=== PATIENT | male | born 2000 | race Caucasian/White ===

== ENCOUNTER 2020-09-21 13:20 | Outpatient (CLI) | payer SELFPAY ==
--- NOTE | ~2020-09-21 | XR_ITS ---
XR chest 2V DATE: 09/21/2020 13:35 INDICATION: Cough, bronchitis TECHNIQUE: PA and lateral views COMPARISON: 07/01/2012 two-view chest FINDINGS: No pulmonary infiltrate or consolidation, pleural effusion or pulmonary vascular congestion or pneumothorax. Normal heart size. No hilar or mediastinal enlargement. Included skeletal structures are unremarkable. IMPRESSION: No active cardiopulmonary disease Reviewed, dictated and finalized at location B. [facility]
== END 2020-09-21 13:21 | disposition home or self-care (01) ==
PROVIDERS: PCP Internal Medicine; Visit Provider Internal Medicine
DX: J40 Bronchitis, not specified as acute or chronic (principal)
CPT/HCPCS: 71046